=== PATIENT | male | born 1975 ===

== ENCOUNTER 2020-11-13 07:30 | Inpatient (IN) | payer BC, OTHER ==
[~2020-11-13] VITALS: Ht 170.2 cm; Wt 73.2 kg
[2020-11-13 10:02] LABS: Albumin 2.9 g/dL (3.4-5.0); Anion Gap 5 (5-15); Blood Urea Nitrogen 9 mg/dL (7-18); Calcium 8.5 mg/dL (8.5-10.1); Carbon Dioxide 27 mmol/L (21-32); Chloride 102 mmol/L (98-107); Glucose 108 mg/dL (74-106); Magnesium 2.2 mg/dL (1.6-2.6); Sodium 134 mmol/L (136-145)
[2020-11-13 10:08] LABS: Alanine Aminotransferase 252 U/L (16-61); Alkaline Phosphatase 118 U/L (45-117); Aspartate Aminotransferase 186 U/L (15-37); BUN/Creatinine Ratio 10.1; Bilirubin, Total 0.4 mg/dL (0.2-1.0); GFR African American 119 mL/min; GFR Non-African American 99 mL/min; Total Protein 7.8 g/dL (6.4-8.2)
[2020-11-13 10:15] LABS: Basophils # (auto) 0 10 ^3/uL (0-0.2); Basophils % (auto) 0.2 % (0.0-2.0); Eosinophils # (auto) 0 10 ^3/uL (0-0.8); Eosinophils % (auto) 0.1 % (0.0-7.0); Lymphocytes # (auto) 0.7 10 ^3/uL (0.4-5.4); Lymphocytes % (auto) 10.1 % (10.0-50.0); Mean Corpuscular Hemoglobin 30.3 pg (28.0-32.0); Mean Corpuscular Hgb Conc. 34.9 g/dL (32.0-36.0); Mean Corpuscular Volume 86.9 fL (80.0-100.0); Monocytes # (auto) 0.4 10 ^3/uL (0-1.3); Monocytes % (auto) 6.1 % (0.0-12.0); Neutrophils # (auto) 5.9 10 ^3/uL (1.6-8.6); Neutrophils % (auto) 83.5 % (37.0-80.0); Nucleated Red Blood Cells % 0.2 %; Red Cell Distribution Width 13.6 % (11.8-14.3); White Blood Cell 7.1 10^3/uL (4.4-10.8)
[2020-11-13 10:20] LABS: INR 1.06 (0.9-1.15); Partial Thromboplastin Time 31.4 sec (23.6-33.0)
[2020-11-13] MEDS ORDERED: cefTRIAXone 1GM/50ML D5W 50 ML IV ONE (13:00)
[2020-11-13] MEDS ORDERED: AZITHROMYCIN 500MG/ 250ML 250 ML IV ONE (13:00)
[2020-11-13] MEDS ORDERED: IOHEXOL 350 MG/ML 100ML IJ ONE (13:24)
[2020-11-13] MEDS ORDERED: ACETAMINOPHEN 500 MG TAB PO PRN ×3 (14:00→21:45)
[2020-11-13] MEDS ORDERED: ALBUTEROL SULF HFA 90MCG INH 200DOSE IN PRN (14:00)
[2020-11-13] MEDS ORDERED: NITROGLYCERIN 0.4 MG SL TAB SL PRN ×2 (14:00→21:45)
[2020-11-13] MEDS ORDERED: MORPHINE SULF INJ 2 MG/ML SYRINGE 1ML IV PRN ×4 (14:00→21:45)
[2020-11-13] MEDS ORDERED: ACETAMINOPHEN 325 MG TAB PO ONE (15:00)
[2020-11-13] MEDS ORDERED: HYDROcodone-ACET 5/325MG TAB PO PRN ×2 (15:15→21:45)
[2020-11-13] MEDS ORDERED: ONDANSETRON HCL 4 MG/2 ML VIAL IV PRN ×2 (15:15→21:45)
[2020-11-13] MEDS ORDERED: IPRATROPIUM BROMIDE HFA AER IN SCH (18:00)
[2020-11-13] MEDS: BUDESONIDE (INHALATION) 180 MCG IH IN SCH (21:15)
[2020-11-13 22:00] VITALS: BP 127/63
[2020-11-13] MEDS ORDERED: BUDESONIDE (INHALATION) 180 MCG IH IN SCH (22:00)
[2020-11-13] MEDS: IPRATROPIUM BROMIDE HFA AER IN SCH (22:00)
[2020-11-13] MEDS ORDERED: ENOXAPARIN SOD 40 MG/0.4 ML SYRINGE SC SCH (22:00)
[2020-11-13] MEDS: ENOXAPARIN SOD 40 MG/0.4 ML SYRINGE SC SCH (22:04)
[2020-11-13] MEDS: ALBUTEROL SULF HFA 90MCG INH 200DOSE IN PRN (22:34)
[2020-11-14 01:36] VITALS: BP 127/63
[2020-11-14 05:00] VITALS: BP 102/62
[2020-11-14] MEDS: IPRATROPIUM BROMIDE HFA AER IN SCH ×4 (06:00→23:10)
[2020-11-14] MEDS: BUDESONIDE (INHALATION) 180 MCG IH IN SCH ×2 (06:56→20:34)
[2020-11-14] MEDS: ALBUTEROL SULF HFA 90MCG INH 200DOSE IN PRN ×2 (06:56→20:44)
[2020-11-14] MEDS ORDERED: IVERMECTIN 3 MG TAB PO ONE ×2 (07:00)
[2020-11-14 09:00] VITALS: BP 121/56
[2020-11-14] MEDS ORDERED: cefTRIAXone 1GM/50ML D5W 50 ML IV SCH (09:00)
[2020-11-14] MEDS: cefTRIAXone 1GM/50ML D5W 50 ML IV SCH (09:08)
[2020-11-14] MEDS: DexAMETHasone SOD PHOS 10MG/1ML VIAL INJ IV SCH (09:09)
[2020-11-14] MEDS: ASCORBIC ACID 1,000 MG TAB PO SCH (09:10)
[2020-11-14] MEDS: ZINC SULFATE 220mg CAP or TAB PO SCH (09:10)
[2020-11-14] MEDS: CHOLECALCIFEROL (VITD3) 2,000 UNIT CAP/TAB PO SCH (09:11)
[2020-11-14] MEDS: ENOXAPARIN SOD 40 MG/0.4 ML SYRINGE SC SCH ×2 (09:11→21:45)
[2020-11-14] MEDS ORDERED: AZITHROMYCIN 500MG/ 250ML 250 ML IV SCH (10:00)
[2020-11-14] MEDS ORDERED: ASCORBIC ACID 1,000 MG TAB PO SCH (10:00)
[2020-11-14] MEDS ORDERED: CHOLECALCIFEROL (VITD3) 2,000 UNIT CAP/TAB PO SCH (10:00)
[2020-11-14] MEDS ORDERED: DexAMETHasone SOD PHOS 10MG/1ML VIAL INJ IV SCH (10:00)
[2020-11-14] MEDS ORDERED: ZINC SULFATE 220mg CAP or TAB PO SCH (10:00)
[2020-11-14] MEDS: AZITHROMYCIN 500MG/ 250ML 250 ML IV SCH (11:34)
[2020-11-14 13:00] VITALS: BP 123/67
[2020-11-14] MEDS ORDERED: REMDESIVIR PER PHARMACY 0 ML IV SCH (13:15)
[2020-11-14 15:49] LABS: Basophils # (auto) 0 10 ^3/uL (0-0.2); Basophils % (auto) 0.2 % (0.0-2.0); Eosinophils # (auto) 0 10 ^3/uL (0-0.8); Hematocrit 41.5 % (41.0-53.0); Hemoglobin 14.1 g/dL (13.5-17.5); Lymphocytes # (auto) 0.5 10 ^3/uL (0.4-5.4); Mean Corpuscular Hemoglobin 29.7 pg (28.0-32.0); Mean Corpuscular Hgb Conc. 33.9 g/dL (32.0-36.0); Mean Corpuscular Volume 87.6 fL (80.0-100.0); Monocytes # (auto) 0.3 10 ^3/uL (0-1.3); Monocytes % (auto) 5.2 % (0.0-12.0); Neutrophils # (auto) 5.3 10 ^3/uL (1.6-8.6); Neutrophils % (auto) 86.6 % (37.0-80.0); Red Blood Cells 4.74 10^6/uL (4.5-5.90); Red Cell Distribution Width 13.5 % (11.8-14.3); White Blood Cell 6.1 10^3/uL (4.4-10.8)
[2020-11-14 16:33] LABS: Albumin 2.9 g/dL (3.4-5.0); Calcium 8.5 mg/dL (8.5-10.1); Potassium 4.1 mmol/L (3.5-5.1)
[2020-11-14 16:36] LABS: BUN/Creatinine Ratio 10.2; Bilirubin, Total 0.3 mg/dL (0.2-1.0); Total Protein 7.7 g/dL (6.4-8.2)
[2020-11-14 17:00] VITALS: BP 113/62
[2020-11-14] MEDS ORDERED: guaiFENesin-DM 100/10mg/5ml SYR PO PRN (17:30)
[2020-11-14] MEDS ORDERED: REMDESIVIR 200 MG in NS 210ml LOADING DOSE ADULT IV ONE ×2 (18:00→20:00)
[2020-11-14] MEDS ORDERED: TOCILIZUMAB 400 MG in SODIUM CHL 0.9% 80 ML IV SCH (20:00)
[2020-11-14 21:38] VITALS: BP 118/67
[2020-11-15 05:00] VITALS: BP 107/57
[2020-11-15] MEDS: ALBUTEROL SULF HFA 90MCG INH 200DOSE IN PRN ×2 (06:37→22:30)
[2020-11-15] MEDS: IPRATROPIUM BROMIDE HFA AER IN SCH ×4 (06:37→22:30)
[2020-11-15] MEDS: BUDESONIDE (INHALATION) 180 MCG IH IN SCH ×2 (06:37→22:30)
[2020-11-15 07:14] LABS: Basophils # (auto) 0 10 ^3/uL (0-0.2); Basophils % (auto) 0.2 % (0.0-2.0); Eosinophils # (auto) 0 10 ^3/uL (0-0.8); Eosinophils % (auto) 0.5 % (0.0-7.0); Hematocrit 41.2 % (41.0-53.0); Hemoglobin 14.3 g/dL (13.5-17.5); Lymphocytes # (auto) 1.1 10 ^3/uL (0.4-5.4); Lymphocytes % (auto) 12.8 % (10.0-50.0); Mean Corpuscular Hemoglobin 30.5 pg (28.0-32.0); Mean Corpuscular Hgb Conc. 34.7 g/dL (32.0-36.0); Mean Corpuscular Volume 87.9 fL (80.0-100.0); Monocytes # (auto) 0.4 10 ^3/uL (0-1.3); Monocytes % (auto) 5.2 % (0.0-12.0); Neutrophils % (auto) 81.3 % (37.0-80.0); Nucleated Red Blood Cells % 0.1 %; Red Blood Cells 4.69 10^6/uL (4.5-5.90); Red Cell Distribution Width 13.4 % (11.8-14.3); White Blood Cell 8.6 10^3/uL (4.4-10.8)
[2020-11-15 07:26] LABS: Albumin 2.7 g/dL (3.4-5.0); BUN/Creatinine Ratio 13.2; Calcium 8.6 mg/dL (8.5-10.1); Potassium 4.4 mmol/L (3.5-5.1)
[2020-11-15 07:29] LABS: Bilirubin, Total 0.3 mg/dL (0.2-1.0); Total Protein 7.4 g/dL (6.4-8.2)
[2020-11-15 09:00] VITALS: BP 124/68
[2020-11-15] MEDS: DexAMETHasone SOD PHOS 10MG/1ML VIAL INJ IV SCH (09:25)
[2020-11-15] MEDS: cefTRIAXone 1GM/50ML D5W 50 ML IV SCH (09:25)
[2020-11-15] MEDS: CHOLECALCIFEROL (VITD3) 2,000 UNIT CAP/TAB PO SCH (09:26)
[2020-11-15] MEDS: ZINC SULFATE 220mg CAP or TAB PO SCH (09:26)
[2020-11-15] MEDS: ASCORBIC ACID 1,000 MG TAB PO SCH (09:26)
[2020-11-15] MEDS: ENOXAPARIN SOD 40 MG/0.4 ML SYRINGE SC SCH ×2 (09:27→21:29)
[2020-11-15] MEDS: AZITHROMYCIN 500MG/ 250ML 250 ML IV SCH (10:47)
[2020-11-15 13:00] VITALS: BP 117/73
[2020-11-15] MEDS: REMDESIVIR 100mg 100 MG in SODIUM CHL 0.9% 230 ML IV SCH (14:50)
[2020-11-15 16:59] VITALS: BP 115/62
[2020-11-15 22:00] VITALS: BP 107/50
[2020-11-16] VITALS (8 sets, daily range): BP systolic 103–122; BP diastolic 54–68
[2020-11-16] MEDS: IPRATROPIUM BROMIDE HFA AER IN SCH ×4 (06:59→23:52)
[2020-11-16] MEDS: ALBUTEROL SULF HFA 90MCG INH 200DOSE IN PRN (06:59)
[2020-11-16] MEDS: BUDESONIDE (INHALATION) 180 MCG IH IN SCH ×2 (07:00→19:52)
[2020-11-16] MEDS: DexAMETHasone SOD PHOS 10MG/1ML VIAL INJ IV SCH (08:01)
[2020-11-16] MEDS: cefTRIAXone 1GM/50ML D5W 50 ML IV SCH (08:01)
[2020-11-16] MEDS: ZINC SULFATE 220mg CAP or TAB PO SCH (08:02)
[2020-11-16] MEDS: ASCORBIC ACID 1,000 MG TAB PO SCH (08:03)
[2020-11-16] MEDS: ENOXAPARIN SOD 40 MG/0.4 ML SYRINGE SC SCH ×2 (08:03→22:07)
[2020-11-16] MEDS: CHOLECALCIFEROL (VITD3) 2,000 UNIT CAP/TAB PO SCH (08:03)
[2020-11-16] MEDS: AZITHROMYCIN 500MG/ 250ML 250 ML IV SCH (10:09)
[2020-11-16] MEDS: REMDESIVIR 100mg 100 MG in SODIUM CHL 0.9% 230 ML IV SCH (16:21)
[2020-11-17 02:53] VITALS: BP 122/63
[2020-11-17 05:00] VITALS: BP 113/59
[2020-11-17] MEDS: BUDESONIDE (INHALATION) 180 MCG IH IN SCH ×2 (06:42→18:49)
[2020-11-17] MEDS: IPRATROPIUM BROMIDE HFA AER IN SCH ×4 (06:45→22:14)
[2020-11-17] MEDS: cefTRIAXone 1GM/50ML D5W 50 ML IV SCH (08:36)
[2020-11-17] MEDS: ENOXAPARIN SOD 40 MG/0.4 ML SYRINGE SC SCH ×2 (08:44→21:28)
[2020-11-17] MEDS: ZINC SULFATE 220mg CAP or TAB PO SCH (08:44)
[2020-11-17] MEDS: CHOLECALCIFEROL (VITD3) 2,000 UNIT CAP/TAB PO SCH (08:44)
[2020-11-17] MEDS: DexAMETHasone SOD PHOS 10MG/1ML VIAL INJ IV SCH (08:44)
[2020-11-17] MEDS: AZITHROMYCIN 500MG/ 250ML 250 ML IV SCH (08:44)
[2020-11-17] MEDS: ASCORBIC ACID 1,000 MG TAB PO SCH (08:44)
[2020-11-17 09:00] VITALS: BP 112/58
[2020-11-17 13:00] VITALS: BP 113/57
[2020-11-17] MEDS: PROMETHAZINE W/CODEINE 5 ML ORAL SYRUP PO PRN (13:02)
[2020-11-17] MEDS: REMDESIVIR 100mg 100 MG in SODIUM CHL 0.9% 230 ML IV SCH (14:40)
[2020-11-17 17:00] VITALS: BP 111/56
[2020-11-17 22:00] VITALS: BP 117/51
[2020-11-18] MEDS: PROMETHAZINE W/CODEINE 5 ML ORAL SYRUP PO PRN ×3 (04:48→22:12)
[2020-11-18 05:00] VITALS: BP 108/63
[2020-11-18] MEDS: IPRATROPIUM BROMIDE HFA AER IN SCH ×4 (06:51→22:16)
[2020-11-18] MEDS: BUDESONIDE (INHALATION) 180 MCG IH IN SCH ×2 (06:51→22:16)
[2020-11-18] MEDS: ALBUTEROL SULF HFA 90MCG INH 200DOSE IN PRN (06:52)
[2020-11-18 07:03] LABS: Potassium 4.1 mmol/L (3.5-5.1)
[2020-11-18 07:09] LABS: Albumin 2.6 g/dL (3.4-5.0); BUN/Creatinine Ratio 18.7; Bilirubin, Total 0.5 mg/dL (0.2-1.0); Total Protein 7.4 g/dL (6.4-8.2)
[2020-11-18 08:30] VITALS: BP 101/63
[2020-11-18] MEDS: cefTRIAXone 1GM/50ML D5W 50 ML IV SCH (09:00)
[2020-11-18] MEDS: AZITHROMYCIN 500MG/ 250ML 250 ML IV SCH (09:36)
[2020-11-18] MEDS: ASCORBIC ACID 1,000 MG TAB PO SCH (09:36)
[2020-11-18] MEDS: DexAMETHasone SOD PHOS 10MG/1ML VIAL INJ IV SCH (09:36)
[2020-11-18] MEDS: ZINC SULFATE 220mg CAP or TAB PO SCH (09:36)
[2020-11-18] MEDS: CHOLECALCIFEROL (VITD3) 2,000 UNIT CAP/TAB PO SCH (09:36)
[2020-11-18] MEDS: ENOXAPARIN SOD 40 MG/0.4 ML SYRINGE SC SCH ×2 (09:37→21:36)
[2020-11-18 10:15] LABS: Basophils # (auto) 0 10 ^3/uL (0-0.2); Basophils % (auto) 0.2 % (0.0-2.0); Eosinophils # (auto) 0.1 10 ^3/uL (0-0.8); Eosinophils % (auto) 0.9 % (0.0-7.0); Hematocrit 40.8 % (41.0-53.0); Hemoglobin 14.1 g/dL (13.5-17.5); Lymphocytes # (auto) 1.1 10 ^3/uL (0.4-5.4); Lymphocytes % (auto) 10.7 % (10.0-50.0); Mean Corpuscular Hemoglobin 30.2 pg (28.0-32.0); Mean Corpuscular Hgb Conc. 34.6 g/dL (32.0-36.0); Mean Corpuscular Volume 87.4 fL (80.0-100.0); Monocytes # (auto) 0.7 10 ^3/uL (0-1.3); Monocytes % (auto) 6.5 % (0.0-12.0); Neutrophils # (auto) 8.2 10 ^3/uL (1.6-8.6); Neutrophils % (auto) 81.7 % (37.0-80.0); Nucleated Red Blood Cells % 0.1 %; Red Blood Cells 4.67 10^6/uL (4.5-5.90); Red Cell Distribution Width 13.5 % (11.8-14.3)
[2020-11-18 12:30] VITALS: BP 118/65
[2020-11-18] MEDS: REMDESIVIR 100mg 100 MG in SODIUM CHL 0.9% 230 ML IV SCH (15:00)
[2020-11-18 17:00] VITALS: BP 110/58
[2020-11-18 22:04] VITALS: BP 119/63
[2020-11-19 05:00] VITALS: BP 117/59
[2020-11-19] MEDS: IPRATROPIUM BROMIDE HFA AER IN SCH ×2 (06:00→09:00)
[2020-11-19 08:25] VITALS: BP 118/71
[2020-11-19 08:53] VITALS: BP 118/71
[2020-11-19] MEDS: BUDESONIDE (INHALATION) 180 MCG IH IN SCH ×2 (08:57→08:59)
[2020-11-19] MEDS: ALBUTEROL SULF HFA 90MCG INH 200DOSE IN PRN (08:57)
[2020-11-19] MEDS: cefTRIAXone 1GM/50ML D5W 50 ML IV SCH ×2 (09:42→10:56)
[2020-11-19] MEDS: CHOLECALCIFEROL (VITD3) 2,000 UNIT CAP/TAB PO SCH (09:44)
[2020-11-19] MEDS: ZINC SULFATE 220mg CAP or TAB PO SCH ×2 (09:44→10:55)
[2020-11-19] MEDS: ENOXAPARIN SOD 40 MG/0.4 ML SYRINGE SC SCH ×2 (09:44→10:52)
[2020-11-19] MEDS: DexAMETHasone SOD PHOS 10MG/1ML VIAL INJ IV SCH ×2 (09:44→10:55)
[2020-11-19] MEDS: ASCORBIC ACID 1,000 MG TAB PO SCH ×2 (09:44→10:56)
[2020-11-19 12:25] VITALS: BP 102/54
[2020-11-19 14:00] VITALS: BP 121/64
== END 2020-11-19 14:00 | disposition home or self-care (01) | DRG 177 ==
LOC: ER 07:30 → TELE-EAST 13:55 → ER 16:47 → TELE-EAST 16:57
PROVIDERS: ADMIT Nurse Practitioner Acute Care; ATTEND Internal Medicine
PROC: XW033E5 Introduction of Remdesivir Anti-infective into Peripheral Vein, Percutaneous Approach, New Technology Group 5 (ICD-10-PCS; principal; 2020-11-15)
DX: U07.1 COVID-19 (principal); J12.82 Pneumonia due to coronavirus disease 2019; J96.01 Acute respiratory failure with hypoxia; R65.10 Systemic inflammatory response syndrome (SIRS) of non-infectious origin without acute organ dysfunction; E44.0 Moderate protein-calorie malnutrition; D89.839 Cytokine release syndrome, grade unspecified; R79.89 Other specified abnormal findings of blood chemistry; K75.9 Inflammatory liver disease, unspecified; Z79.82 Long term (current) use of aspirin; K76.0 Fatty (change of) liver, not elsewhere classified; Z68.24 Body mass index [BMI] 24.0-24.9, adult
CPT/HCPCS: 36415; 71045; 71275; 76705; 80053; 82728; 83605; 83615; 83735; 84484; 85025; 85610; 85730; 86141; 87040; 87426; 93005; 94640; 96365; 96366; 96367; 96375; G0378; J0696; J1100